=== PATIENT | male | born 1955 | race Caucasian/White ===

== ENCOUNTER 2020-02-22 18:29 | Emergency (ER) | payer OTHER ==
[2020-02-22] MEDS: LORazepam 2 MG/ML INJ IV STA ×2 (18:50→19:17)
[2020-02-22] MEDS ORDERED: ZIPRASIDONE 20 MG VIAL IM STA (18:57)
[2020-02-22] MEDS ORDERED: LORazepam 2 MG/ML INJ IV STA (18:58)
--- NOTE | 2020-02-22 19:14 | CT ---
EXAMINATION TYPE: CT brain robby wo con DATE OF EXAM: 02/22/2020 COMPARISON: CT brain 07/12/2013 HISTORY: fall. multiple head lacerations. Headache. Neck pain CT DLP: 1457.2 mGycm Automated exposure control for dose reduction was used. Ventricles have normal size. There is no mass effect nor midline shift. There is no sign of intracran ial hemorrhage. The calvarium is intact. I see no sign of cerebral edema. There is some straightening of the cervical spine. There is disc space narrowing at C5-6 and C6-7 wit h spurring of the endplates. There is multilevel mild cervical facet arthropathy. The skull base is i ntact. Temporal bones appear intact. IMPRESSION: Spondylotic changes in the lower cervical spine. No fracture. Negative CT scan of the brain.
[2020-02-22] MEDS ORDERED: DIPH,PERTUS(ACELL)TETVAC-LF 0.5 ML VIAL IM ONE (19:24)
[2020-02-22 19:48] LABS: Basophils % (A) 0 %; Eosinophils # (A) 0.3 k/uL (0-0.7); Eosinophils % (A) 4 %; HCT 46.5 % (39.0-53.0); HGB 14.6 gm/dL (13.0-17.5); Lymphocytes # (A) 2.9 k/uL (1.0-4.8); Lymphocytes % (A) 42 %; MCH 30.2 pg (25.0-35.0); MCHC 31.3 g/dL (31.0-37.0); MCV 96.5 fL (80.0-100.0); Mean Platelet Volume 7.6; Monocytes # (A) 0.5 k/uL (0-1.0); Monocytes % (A) 7 %; Neutrophils % (A) 43 %; Platelet Count 196 k/uL (150-450); RBC 4.82 m/uL (4.30-5.90); RDW 13.1 % (11.5-15.5); WBC 6.8 k/uL (3.8-10.6)
[2020-02-22 20:14] LABS: ALT 35 U/L (4-49); AST 36 U/L (17-59); African American GFR (CKD) >90 (>60 ml/min/1.73 sqM); Albumin 4.2 g/dL (3.5-5.0); Alkaline Phosphatase 69 U/L (38-126); Anion Gap 8 mmol/L; Blood Urea Nitrogen 20 mg/dL (9-20); Calcium 8.9 mg/dL (8.4-10.2); Carbon Dioxide 26 mmol/L (22-30); Chloride 105 mmol/L (98-107); Glucose 98 mg/dL (74-99); Non-African American GFR(CKD) >90 (>60 ml/min/1.73 sqM); Potassium 4.3 mmol/L (3.5-5.1); Sodium 139 mmol/L (137-145); Total Bilirubin 0.3 mg/dL (0.2-1.3); Total Protein 7.4 g/dL (6.3-8.2)
[2020-02-22 20:16] LABS: Alcohol 298 mg/dL
--- NOTE | 2020-02-22 21:03 | XR ---
EXAMINATION TYPE: XR chest 1V DATE OF EXAM: 02/22/2020 COMPARISON: 07/14/2013 HISTORY: Fall. Chest pain. TECHNIQUE: FINDINGS: Heart appears enlarged. There is slight blunting of the costophrenic angles. The bony thora x is intact. There is no heart failure. There is old right side rib fractures. IMPRESSION: No acute lung disease. Minimal pleural reaction and subsegmental atelectasis at the lung bases improved compared to old exam. Old right side lower lateral healed rib fractures.
[2020-02-22 21:49] LABS: Magnesium 2.2 mg/dL (1.6-2.3)
--- NOTE | 2020-02-22 21:54 | ED ---
General Adult HPI <Ney Gagnon - Last Filed: 02/22/20 23:26> - General Source: patient, EMS, RN notes reviewed, old records reviewed Mode of arrival: EMS Limitations: altered mental status <Royce Valverde - Last Filed: 02/22/20 23:41> - General Chief complaint: Fall Stated complaint: Fall ETOH Time Seen by Provider: 02/22/20 18:43 - History of Present Illness Initial comments: 64-year-old male patient presents ED brought in from EMS after reported fall. Patient reports that his drinking earlier today and fell and hit his head. Upon arrival to emergency department patient is very aggressive. Patient is threatening staff and myself, being extremely aggressive. I told patient that he needs to wear cervical collar in order to make sure that he does not have any sort of cervical spinal fracture. Patient adamantly declines and is yelling. He states that there is no way he could have broken his neck. Patient rips off the cervical collar. Patient did consent to go to CAT scan both continuing to be aggressive and threatening and was administered Geodon and Ativan per Dr. Gagnon. Physical exam does display small abrasion to the posterior aspect of the skull. Not open his did not require closure. No other signs of trauma are noted. Patient's has full active ROM of upper and lower extremities. After administration of Geodon and Ativan patient began sleeping. While patient was m onitored while sleeping he was found to have oxygen saturations in the 70s and 80s. A nasal trumpet was placed. This did improve oxygen saturations and patient is saturating the 90s. A plain film of the chest was obtained did not dispay any cardiopulmonary process. CT brain C-spine without contrast display acute pathology. Repeat evaluation. patient again began desaturating down into the 60s this time. Pt was evaluated multiple times by myself and Dr. Gagnon. Arterial blood gas was ordered and patient was initiated on non rebreather. Oxygen saturation increased to 95%. Arterial blood gas however is significant for pH of 7.08. PCO2 99. PO2 of 85. Patient was intubated and will be [facility] sferred to [facility] for further evaluation. (Royce Valverde) - Related Data Home Medications Medication Instructions Recorded Confirmed Propranolol HCl [Inderal Xl] 80 mg PO DIRECTED 12/24/14 12/24/14 Previous Rx's Medication Instructions Recorded HYDROcodone/APAP 5-325MG [[place] 1 each PO Q6HR PRN #20 tab 12/24/14 5-325] Ibuprofen [Motrin] 800 mg PO Q8HR PRN #30 tab 12/24/14 Allergies Allergy/AdvReac Type Severity Reaction Status Date / Time No Known Allergies Allergy Verified 12/24/14 12:18 Review of Systems ROS Other: All systems not noted in ROS Statement are negative. <KalinNey - Last Filed: 02/22/20 23:26> ROS Other: All systems not noted in ROS Statement are negative. <Royce Valverde - Last Filed: 02/22/20 23:41> ROS Statement: Those systems with pertinent positive or pertinent negative responses have been documented in the HPI. Past Medical History Past Medical History: Hypertension, Sleep Apnea/CPAP/BIPAP History of Any Multi-Drug Resistant Organisms: None Reported Additional Past Surgical History / Comment(s): palate for sleep apnea Past Psychological History: No Psychological Hx Reported Smoking Status: Current every day smoker Past Alcohol Use History: Occasional Past Drug Use History: None Reported <Royce Valverde - Last Filed: 02/22/20 23:41> General Exam Limitations: altered mental status <Royce Valverde - Last Filed: 02/22/20 23:41> - General Exam Comments Initial Comments: Constitutional: NAD, Pt aggressive. HEENT: NC/AT, trachea midline, neck supple. External ears appear normal, without discharge. EOM intact. There is no scleral icterus. No pallor noted. Cardiopulmonary: RRR, no murmurs, rubs or gallops, no JVD noted. Lungs CTAB in anterior and posterior chisholm. No peripheral edema. Abdominal exam: Abdomen soft and non-distended. No hepatosplenomegaly. No ecchymosis Neuro: CN II-XII grossly intact. No nuchal rigidity. No raccon eyes, no robles sign. MSK: Full active ROM in upper and lower extremities. (Royce Valverde) Course <Ney Gagnon - Last Filed: 02/22/20 23:26> Vital Signs 02/22/20 02/22/20 02/22/20 18:33 20:27 21:46 Temperature 97 F L Pulse Rate 113 H 107 H Respiratory 18 22 22 Rate Blood Pressure 146/102 140/106 O2 Sat by Pulse 94 L Oximetry 02/22/20 02/22/20 02/22/20 21:54 22:03 22:07 Temperature Pulse Rate 103 H 106 H Respiratory 22 22 22 Rate Blood Pressure 179/106 165/104 O2 Sat by Pulse 88 L 95 Oximetry 02/22/20 23:34 Temperature 97.4 F L Pulse Rate 96 Respiratory 20 Rate Blood Pressure 116/80 O2 Sat by Pulse 99 Oximetry - Reevaluation(s) Reevaluation #1: 02/22/20 23:26 Patient condition: The patient initially came in after apparently drinking today and falling backwards striking his head on the ground. He was awake and seemingly alert and combative however he is verbally and physically threatening and abusive to staff members. Was given Geodon and Ativan dosing. Will get a CAT scan of the head neck successfully did have alcohol level to 98. Initially the plan was to admit the patient this facility but was noted on reevaluation the patient's pulse oximetry was decreasing and the patient seemed have more trouble with breathing. A nasal trumpet was placed with initial improvement however reevaluation the patient was noted have laborious breathing. ABG was obtained showed evidence of CO2 retention and respiratory acidosis with a pH of 7.088. Patient was observed to be breathing at about 30 breaths per minute shallow breathing. He did require airway protection and was intubated by myself. X-ray done afterwards revealed the tube to be in good place above the cecilia the OG tube was in place. There was evidence of dark red blood coming from the OG tube. The patient did have brown stool that was heme-negative on evaluation. (Ney Gagnon) Procedures - ABG Interpretation Ph: 7.088 PCO2: 99.1 PO2: 85.3 Bicarbonate: 29.9 Interpretation: respiratory acidosis - Intubation Laryngoscope: fiber optic video scope Size: 4 ET Tube Size: 8 ET Tube Uncuffed: No Tube Secured Depth (cm): 24 Tube Secured Location: lips Tube Placement Confirmation: visualized tube passing through cords, equal breath sounds bilaterally, confirmation by capnometry Patient Tolerated Procedure: no complications Intubation Complications: none <Ney Gagnon - Last Filed: 02/22/20 23:26> Medical Decision Making - Lab Data Result diagrams: 02/22/20 19:30 02/22/20 19:30 <Ney Gagnon - Last Filed: 02/22/20 23:26> - Lab Data Result diagrams: 02/22/20 19:30 02/22/20 19:30 - EKG Data -: EKG Interpreted by Me (and Dr. Gagnon ) <Royce Valverde - Last Filed: 02/22/20 23:41> - Medical Decision Making 64-year-old male patient presents ED brought in from EMS after reported fall. Patient reports that his drinking earlier today and fell and hit his head. Upon arrival to emergency department patient is very aggressive. Patient is threatening staff and myself, being extremely aggressive. I told patient that he needs to wear cervical collar in order to make sure that he does not have any sort of cervical spinal fracture. Patient adamantly declines and is yelling. He states that there is no way he could have broken his neck. Patient rips off the cervical collar. Patient did consent to go to CAT scan both continuing to be aggressive and threatening and was administered Geodon and Ativan per Dr. Gagnon. Physical exam does display small abrasion to the posterior aspect of the skull. Not open his did not require closure. No other signs of trauma are noted. Patient's has full active ROM of upper and lower extremities. After administration of Geodon and Ativan patient began sleeping. While patient was monitored while sleeping he was found to have oxygen saturations in the 70s and 80s. A nasal trumpet was placed. This did improve oxygen saturations and patient is saturating the 90s. A plain film of the chest was obtained did not dispay any cardiopulmonary process. CT brain C-spine without contrast display acute pathology. Repeat evaluation. patient again began desaturating down into the 60s this time. Pt was evaluated multiple times by myself and Dr. Gagnon. Arterial blood gas was ordered and patient was initiated on non rebreather. Oxygen saturation increased to 95%. Arterial blood gas however is significant for pH of 7.08. PCO2 99. PO2 of 85. Patient was intubated and will be transferred to [facility] for further evaluation. Dr. Lee accepts transfer. (Royce Valverde) - Lab Data Lab Results 02/22/20 02/22/20 02/22/20 Range/Units 19:30 19:30 19:30 WBC 6.8 (3.8-10.6) k/uL RBC 4.82 (4.30-5.90) m/uL Hgb 14.6 (13.0-17.5) gm/dL Hct 46.5 (39.0-53.0) % MCV 96.5 (80.0-100.0) fL MCH 30.2 (25.0-35.0) pg MCHC 31.3 (31.0-37.0) g/dL RDW 13.1 (11.5-15.5) % Plt Count 196 (150-450) k/uL Neutrophils % 43 % Lymphocytes % 42 % Monocytes % 7 % Eosinophils % 4 % Basophils % 0 % Neutrophils # 3.0 (1.3-7.7) k/uL Lymphocytes # 2.9 (1.0-4.8) k/uL Monocytes # 0.5 (0-1.0) k/uL Eosinophils # 0.3 (0-0.7) k/uL Basophils # 0.0 (0-0.2) k/uL Sample Site ABG pH (7.35-7.45) ABG pCO2 (35-45) mmHg ABG pO2 (83-108) mmHg ABG HCO3 (21-25) mmol/L ABG Total CO2 (19-24) mmol/L ABG O2 Saturation (94-97) % ABG Base Excess mmol/L Kevin Test FiO2 % Sodium 139 (137-145) mmol/L Potassium 4.3 (3.5-5.1) mmol/L Chloride 105 (98-107) mmol/L Carbon Dioxide 26 (22-30) mmol/L Anion Gap 8 mmol/L BUN 20 (9-20) mg/dL Creatinine 0.84 (0.66-1.25) mg/dL Est GFR (CKD-EPI)AfAm >90 (>60 ml/min/1.73 sqM) Est GFR (CKD-EPI)NonAf >90 (>60 ml/min/1.73 sqM) Glucose 98 (74-99) mg/dL Plasma Lactic Acid Kenneth (0.7-2.0) mmol/L Calcium 8.9 (8.4-10.2) mg/dL Magnesium 2.2 (1.6-2.3) mg/dL Total Bilirubin 0.3 (0.2-1.3) mg/dL AST 36 (17-59) U/L ALT 35 (4-49) U/L Alkaline Phosphatase 69 (38-126) U/L Total Protein 7.4 (6.3-8.2) g/dL Albumin 4.2 (3.5-5.0) g/dL Lipase 103 (23-300) U/L Serum Alcohol 298 H* mg/dL 02/22/20 02/22/20 Range/Units 21:53 23:02 WBC (3.8-10.6) k/uL RBC (4.30-5.90) m/uL Hgb (13.0-17.5) gm/dL Hct (39.0-53.0) % MCV (80.0-100.0) fL MCH (25.0-35.0) pg MCHC (31.0-37.0) g/dL RDW (11.5-15.5) % Plt Count (150-450) k/uL Neutrophils % % Lymphocytes % % Monocytes % % Eosinophils % % Basophils % % Neutrophils # (1.3-7.7) k/uL Lymphocytes # (1.0-4.8) k/uL Monocytes # (0-1.0) k/uL Eosinophils # (0-0.7) k/uL Basophils # (0-0.2) k/uL Sample Site right brachial ABG pH 7.09 L* (7.35-7.45) ABG pCO2 99 H* (35-45) mmHg ABG pO2 85 (83-108) mmHg ABG HCO3 30 H (21-25) mmol/L ABG Total CO2 33 H (19-24) mmol/L ABG O2 Saturation 90.1 L (94-97) % ABG Base Excess 0.0 mmol/L Kevin Test Yes FiO2 100 % Sodium (137-145) mmol/L Potassium (3.5-5.1) mmol/L Chloride (98-107) mmol/L Carbon Dioxide (22-30) mmol/L Anion Gap mmol/L BUN (9-20) mg/dL Creatinine (0.66-1.25) mg/dL Est GFR (CKD-EPI)AfAm (>60 ml/min/1.73 sqM) Est GFR (CKD-EPI)NonAf (>60 ml/min/1.73 sqM) Glucose (74-99) mg/dL Plasma Lactic Acid Kenneth 1.1 (0.7-2.0) mmol/L Calcium (8.4-10.2) mg/dL Magnesium (1.6-2.3) mg/dL Total Bilirubin (0.2-1.3) mg/dL AST (17-59) U/L ALT (4-49) U/L Alkaline Phosphatase (38-126) U/L Total Protein (6.3-8.2) g/dL Albumin (3.5-5.0) g/dL Lipase (23-300) U/L Serum Alcohol mg/dL - EKG Data EKG Comments: Ventricular rate 103, apparently 200, QRS 104, QT/QTC 344/450. Sinus tachycardia, left anterior fascicular block. Abnormal EKG. (Royce Valverde) Critical Care Time Critical Care Time: Yes (33) <Royce Valverde - Last Filed: 02/22/20 23:41> Disposition <Ney Gagnon - Last Filed: 02/22/20 23:26> - Out of Hospital Transfer - Req. Specs Out of Hospital Transfer - Requested Specifics: Other Emergency Center ([facility]) <Royce Valverde - Last Filed: 02/22/20 23:41> Clinical Impression: Fall, Concussion, Alcohol intoxication, Acute respiratory failure Disposition: OTHER INSTITUTION NOT DEFINED Condition: Critical Referrals: [facility],Clinic [Primary Care Provider] - 1-2 days
[2020-02-22] MEDS ORDERED: NALOXONE 0.4 MG/ML 10 ML VIAL IVP STA (21:59)
[2020-02-22 22:11] LABS: ABG HCO3 30 mmol/L (21-25); ABG PO2 85 mmHg (83-108); ABG TCO2 33 mmol/L (19-24); Allen Test Performed? Yes
[2020-02-22] MEDS ORDERED: SODIUM CHLORIDE 0.9% 500 ML 500 ML IV ONE (22:13)
[2020-02-22 22:23] LABS: ABG PCO2 99 mmHg (35-45); ABG PH 7.09 (7.35-7.45)
[2020-02-22 22:24] LABS: ABG Oxygen Saturation 90.1 % (94-97)
[2020-02-22] MEDS ORDERED: PROPOFOL 1,000 MG in EMPTY BAG 1 BAG IV ONE (23:07)
--- NOTE | 2020-02-22 23:28 | XR ---
EXAMINATION TYPE: XR chest 1V DATE OF EXAM: 02/22/2020 COMPARISON: Today HISTORY: Check tube placement TECHNIQUE: FINDINGS: Endotracheal tube is 6 cm from the cecilia. Nasogastric tube is probably in the stomach. Tip is not well seen. There is no heart failure. Heart is slightly enlarged. Thoracic aorta is atheromat ous. There are chest leads. IMPRESSION: No active cardiopulmonary disease. No adverse change compared to exam 2 hours ago.
[2020-02-22 23:35] VITALS: TEMP 97.4
[2020-02-22] MEDS: SODIUM CHLORIDE 0.9% 1,000 ML IV STA (23:45)
[2020-02-22 23:51] LABS: Appearance,Urine Clear (Clear); Bilirubin,Urine Negative (Negative); Blood,Urine Negative (Negative); Color,Urine Colorless; Glucose,Urine (UA) 1+ (Negative); Ketones,Urine Negative (Negative); Leukocyte Esterase,Urine Negative (Negative); Nitrite,Urine Negative (Negative); Protein,Urine Negative (Negative); Specific Gravity,Urine 1.005 (1.001-1.035); Urobilinogen,Urine <2.0 mg/dL (<2.0)
[2020-02-22 23:52] LABS: ABG Base Excess -1.6 mmol/L; ABG HCO3 26 mmol/L (21-25); ABG PCO2 64 mmHg (35-45); ABG PH 7.22 (7.35-7.45); ABG PO2 368 mmHg (83-108); ABG TCO2 28 mmol/L (19-24); Allen Test Performed? Yes
[2020-02-22 23:55] VITALS: RESP 18
[2020-02-23 00:01] LABS: Amphetamine Screen,Urine Not Detected (NotDetected); Barbiturate Screen,Urine Not Detected (NotDetected); Benzodiazepines Screen,Urine Not Detected (NotDetected); Cocaine Screen,Urine Not Detected (NotDetected); Methadone Screen, Urine Not Detected (NotDetected); Opiate Screen,Urine Not Detected (NotDetected); Oxycodone Screen, Urine Not Detected (NotDetected); Phencyclidine Screen,Urine Not Detected (NotDetected); Tricyclic Antidepressant,Urine Not Detected (NotDetected); Urn Cannabinoid Scrn Not Detected (NotDetected)
[2020-02-23] MEDS: SODIUM CHLORIDE 0.9% 1,000 ML IV STA (00:20)
[2020-02-23] MEDS ORDERED: LORazepam 2 MG/ML INJ IV STA (00:32)
[2020-02-23 00:56] VITALS: BP 107/77; PULSE 88
== END 2020-02-23 00:58 | disposition other institution (70) ==
LOC: EC 18:29
DX: S06.0X0A Concussion without loss of consciousness, initial encounter (principal); F10.129 Alcohol abuse with intoxication, unspecified; J96.00 Acute respiratory failure, unspecified whether with hypoxia or hypercapnia; I10 Essential (primary) hypertension; G47.30 Sleep apnea, unspecified; F17.200 Nicotine dependence, unspecified, uncomplicated; Z23 Encounter for immunization; Z79.899 Other long term (current) drug therapy; Z99.89 Dependence on other enabling machines and devices; W18.09XA Striking against other object with subsequent fall, initial encounter
CPT/HCPCS: 36415; 36600; 94002; 93005; 80053; 82805; 83605; 83690; 83735; 85025; 82272; 81003; 80306; 80320; 71045; 72125; 70450; 99291; 31500; 90471; 96374; 96375; 96376; 96361; 96372; J2060; J2310; J3486; J2704; 90715